=== PATIENT | female | born 1955 | race Caucasian/White ===

== ENCOUNTER → 2022-07-18 09:00 | Outpatient (CLI) | payer MEDICARE, OTHER, SELFPAY ==
--- NOTE | ~2022-07-18 | MR_ITS ---
MRI of the right knee Clinical history: Pain Technique: Coronal proton density and proton density-weighted images, sagittal proton-density and T2 fat-sat images, and axial proton-density fat-saturated images were acquired. Findings: Anterior and posterior cruciate ligaments are intact. Medial collateral ligament and the la teral collateral ligament complex are intact. There is soft tissue edema about the MCL. Popliteus ten don is intact. There is probable horizontal/oblique tearing of the posterior horn of the medial meniscus. There is h orizontal tear of the body segment of the lateral meniscus at the free edge. There is diffuse moderate chondromalacia of the medial femoral condyle. Articular cartilage in the la teral compartment is well preserved. There is mild chondral malacia along the femoral trochlea. There is extensive high-grade chondromalacia along the medial patellar facet, with mild to moderate chondr omalacia along the lateral patellar facet. Tricompartmental osteophytes are present. Extensor mechanism is intact. Small to moderate joint effusion is present. No Joy's cyst. There is prepatellar subcutaneous soft tissue edema and probable bursa formation. Impression: Horizontal/oblique tearing of the posterior horn of the medial meniscus. Probable free edge tear of the body segment of the lateral meniscus. Moderate tricompartmental osteoarthritis, as detailed above, probably worst in the medial compartment . [id number] joint effusion. Prepatellar soft tissue edema and bursitis. Reviewed, dictated and finalized at [facility]. HOOKER Impression: Horizontal/oblique tearing of the posterior horn of the medial meniscus. Probable free edge tear of the body segment of the lateral meniscus. Moderate tricompartmental osteoarthritis, as detailed above, probably worst in the medial compartment. [id number] joint effusion. Prepatellar soft tissue edema and bursitis.
== END ==
PROVIDERS: PCP Physician Assistant; Visit Provider Physician Assistant
DX: M25.561 Pain in right knee (principal); M25.361 Other instability, right knee; S83.241A Other tear of medial meniscus, current injury, right knee, initial encounter; M17.11 Unilateral primary osteoarthritis, right knee; M25.461 Effusion, right knee; R60.9 Edema, unspecified; M71.9 Bursopathy, unspecified; T14.90XA Injury, unspecified, initial encounter
CPT/HCPCS: 73721